=== PATIENT | male | born 1955 | race Hispanic/Latino ===

== ENCOUNTER 2021-03-24 10:23 | Outpatient (CLI) | payer OTHER ==
--- NOTE | 2021-03-24 13:45 | XRay Report ---
Shoulder bilateral 6 views INDICATION: Bilateral shoulder pain IMPRESSION: Moderate degenerative changes of the left glenohumeral and AC joints postoperative change s noted within the left glenoid/labrum region. The right shoulder is intact. Signer Name: Adiel Schwarz MD Signed: 03/24/2021 1:41 PM Workstation Name: [id number]
--- NOTE | 2021-03-24 13:49 | XRay Report ---
CERVICAL SPINE 3 VIEWS INDICATION: Back pain. Neck pain. COMPARISON: No relevant prior imaging study available. FINDINGS: VERTEBRAE: No acute fracture. Normal alignment. DISC SPACES: Mild discogenic degenerative changes are noted at C3-C4 and C4-C5 with moderate discogen ic degenerative changes at C5-C6 C6-C7 and C7-T1. FACET JOINTS: No significant abnormality. SOFT TISSUES: No significant abnormality. ADDITIONAL FINDINGS: No additional significant findings. IMPRESSION: Moderate cervical spondylosis. Signer Name: Thanh David MD Signed: 03/24/2021 1:44 PM Workstation Name: [id number]
--- NOTE | 2021-03-24 14:17 | XRay Report ---
Lumbar spine, 3 views HISTORY: Back pain COMPARISON: None FINDINGS: Mild left convex curvature with apex at L2 with slight rotation. No significant malalignmen t. Moderate to severe disc space height loss at L2-L3 and L5-S1. Moderate to marked lower lumbar face t arthropathy. No evidence of fracture. Signer Name: Bebo Estrada MD Signed: 03/24/2021 2:13 PM Workstation Name: [email or web address]
== END 2021-03-24 10:24 | disposition home or self-care (01) ==
LOC: XRAY 10:23
PROVIDERS: ATTEND Internal Medicine
DX: M47.812 Spondylosis without myelopathy or radiculopathy, cervical region (principal); M19.012 Primary osteoarthritis, left shoulder; M47.817 Spondylosis without myelopathy or radiculopathy, lumbosacral region
CPT/HCPCS: 72040; 72100